=== PATIENT | female | born 1950 | race Caucasian/White ===

== ENCOUNTER 2022-02-02 05:06 | Observation (INO) ==
--- NOTE | 2022-01-04 15:36 | PAT Medication Instructions ---
Medication Instructions Date of Service January 04, 2022 Home Medications cinnamon bark 500 mg capsule (Cinnamon) 500 mg PO losartan 100 mg tablet 100 mg PO QAM cranberry 1,000 mg capsule 1,000 mg PO QAM multivitamin 1 tab PO QAM STOP taking 2 weeks before surgery cranberry 1,000 mg capsule 1,000 mg PO QAM cinnamon bark 500 mg capsule (Cinnamon) 500 mg PO DO NOT take the morning of surgery losartan 100 mg tablet 100 mg PO QAM multivitamin 1 tab PO QAM Insulin Dependent Diabetic Patients NOTHING TO EAT OR DRINK AFTER MIDNIGHT. Other Notes If you have any questions please call us at [phone] or [phone] or [phone] or [phone]
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
[2022-02-02] MEDS ORDERED: TRANEXAMIC ACID 1,000 MG **IV Pre-op IV SCH (06:00)
[2022-02-02] MEDS ORDERED: ACETAMINOPHEN 500 MG TAB PO SCH (06:00)
[2022-02-02] MEDS ORDERED: ceFAZolin 2000MG 2,000 MG/15 ML SYR IV SCH (06:00)
[2022-02-02] MEDS ORDERED: dexAMETHasone 4 MG TAB PO SCH (06:00)
[2022-02-02] MEDS ORDERED: GABAPENTIN 300 MG CAP PO SCH (06:00)
[2022-02-02] MEDS ORDERED: LR 60ML/HR IV SCH (06:00)
[2022-02-02] MEDS ORDERED: TRANEXAMIC ACID 1,000 MG **IV Intra-op IV SCH (06:00)
[2022-02-02] MEDS ORDERED: Ketorolac (*for OR use only*) 30 MG, dexAMETHasone 4 MG, KETAMINE HCL (**OR use only) 1... INFIL SCH (06:00)
[2022-02-02] MEDS ORDERED: LR 500ML BOLUS, THEN 15ML/HR IV SCH (06:00)
[2022-02-02] MEDS ORDERED: ROPIVACAINE 0.5% 5 MG/ML 30 ML VIAL ONE (06:16)
[2022-02-02] MEDS ORDERED: BUPIVACAINE 0.5 % 5 MG/1 ML PF 10ML VIAL ONE (06:16)
[2022-02-02] MEDS ORDERED: MIDAZOLAM HCL 1 MG/ML 2ML VIAL ONE (06:27)
[2022-02-02] MEDS ORDERED: fentaNYL citrate 100 MCG/2 ML VIAL ONE ×2 (06:27→07:17)
[2022-02-02] MEDS ORDERED: PROPOFOL IV EMULSION 10 MG/ML 20 ML VIAL IV ONE (06:27)
[2022-02-02] MEDS ORDERED: LIDOCAINE 2% MPF LOCAL 5 ML VIAL INFIL ONE (06:27)
[2022-02-02] MEDS ORDERED: ORTHO JOINT ANESTHETIC ONE (06:42)
--- NOTE | 2022-02-02 06:43 | History & Physical Bridge Note ---
Date of Service February 02, 2022 History & Physical Bridge Note I have examined the patient, reviewed the History & Physical and in the interval since the performance of the History & Physical I have noted the following changes of clinical significance: no changes noted
[2022-02-02] MEDS ORDERED: fentaNYL citrate 100 MCG/2 ML VIAL IV PRN (07:12)
[2022-02-02] MEDS ORDERED: ATROPINE SULFATE 0.1 MG/ML 10ML SYR IV PRN (07:12)
[2022-02-02] MEDS ORDERED: ePHEDrine sulfate 50 MG/ML AMP IV PRN (07:12)
[2022-02-02] MEDS ORDERED: HYDROmorphone INJ 2 MG/ML SYR/VIAL IV PRN (07:12)
[2022-02-02] MEDS ORDERED: ONDANSETRON INJ 2 MG/ML 2 ML VIAL IV PRN ×2 (07:12→09:52)
[2022-02-02] MEDS ORDERED: DEXAMETHASONE SOD INJ 4 MG/ML VIAL ONE (07:16)
[2022-02-02] MEDS ORDERED: ePHEDrine sulfate 50 MG/ML AMP ONE (07:16)
[2022-02-02] MEDS ORDERED: ONDANSETRON INJ 2 MG/ML 2 ML VIAL ONE (07:16)
--- NOTE | 2022-02-02 08:04 | Operative Report ---
PG Post Operative Report Pre & Post Diagnosis Operation Date: 02/02/22 07:00 Pre-Op Diagnosis: Degenerative Joint Disease Right Knee Post-Op Diagnosis: Degenerative Joint Disease Right Knee I identified the patient and participated in the time-out.: Yes Procedure Operation Date: 02/02/22 07:00 Actual Procedures p Right Total Knee Arthroplasty(Right) - Steven Vazquez DO Surgeon Steven Vazquez DO [employer] Bever[employer] Operations Manager Steven Osman PA-C Estimated Blood Loss 30 Findings Consistent with Post-Op Diagnosis Specimens Right femoral and tibial bone Description of Procedure Implants used: I used a Jayden Persona total knee arthroplasty system with a size 5 PS femur, D tibia, 31 oval patella, and a size 12 CPS polyethylene bearing. All components were cemented in place with Biomet cement. Marlys arrived [facility] for the above procedure. She was seen in the preoperative holding area and the operative extremity was identified and signed. She was given a preoperative antibiotic, TXA, a spinal anesthetic and an adductor nerve block. She was taken back to the operating room and laid on the table in supine position. She was given basic sedation. The operative knee was then prepped and draped in sterile fashion. A timeout was done, and the patient and the operative extremity was properly identified. A midline incision was made directly over the patella. Dissection was taken down to the extensor mechanism. A subvastus arthrotomy was used. The medial retinaculum was released and the fat pad was mostly excised. The knee was flexed and the ACL, PCL, and meniscus were removed. A drill was sent down the center of the femoral canal followed by an intramedullary tucker. Off that tucker a distal femoral cutting block was placed. 9 mm was resected off the distal femur at 5 of valgus. A posterior referencing AP sizing guide was then placed on the distal femur. The femur measured to be a size 5. 2 drill holes were placed in 3 of external rotation. A 4-in-1 cutting block was then impacted into place. Anterior, posterior, and chamfer cuts were then made. The proximal tibia was then exposed. An external tibial alignment guide was placed. A tibial cut guide was then anchored in place and the proximal tibia was then resected. The posterior aspect of the knee was then opened up and any additional meniscus fragments and osteophytes were removed. The tibia measured to be a size D. The tibial plate was then placed in the appropriate rotation and the tibia was drilled and punched. Trial components were then placed. I used a size 12 CPS polyethylene insert. The knee was brought through a full range of motion and felt to be stable. The peg holes for the femoral component were then drilled. The patella was then everted and 9 mm was resected off the posterior aspect of the patella. The patella measured to be a size 31 oval. 3 peg holes were then drilled. A trial patella was placed. The knee was once again brought through a full range of motion and felt to be stable. Trial components were then removed. The surrounding soft tissues were injected with 100 cc of an orthopedic pain control cocktail. All components were then cemented into place with Biomet cement. The final polyethylene insert was then snapped into place. Once cement was dry the tourniquet was deflated. Hemostasis was obtained. A dilute betadyne lavage was then done for 3 minutes. The joint was then irrigated with normal saline solution. The subvastus arthrotomy was then closed with #1 Vicryl suture. The skin was closed with 2-0 Vicryl, 3-0V lock suture, and carolin. A soft compressive dressing was placed. She was then transferred to a hospital bed and taken to the postanesthesia care unit in stable condition. She tolerated the procedure well. Steven Osman PA-C, was present for the entire procedure. He was critical for patient positioning, prepping, draping, retraction exposure, wound closure and application of sterile dressing. I attest to the content of the Intraoperative Record and any orders documented therein. Any exceptions are noted below.
--- NOTE | 2022-02-02 09:18 | XRay Report ---
XR knee RT 1 or 2V routine CLINICAL HISTORY: Postoperative evaluation. COMPARISON: Knee radiograph December 15, 2021. FINDINGS: Alignment of the total right knee arthroplasty is anatomic. There is no periprosthetic fra cture or unexpected radiopaque foreign body. There are skin carolin. IMPRESSION: Expected findings following total right knee arthroplasty. ACT 112: Negative or not required by law. Electronically signed by: Arya Smith M.D. 02/02/2022 9:17 AM
--- NOTE | 2022-02-02 09:25 | Anesthesiology Progress Note ---
Date of Service February 02, 2022 Anesthesia Post Procedure Vital Signs Vital Signs: Temp Pulse Pulse Resp BP Pulse Ox O2 Del Method 02/02/22 09:00 86 17 136/72 98 Nasal Cannula 02/02/22 08:50 80 14 139/73 96 Nasal Cannula 02/02/22 09:20 64 15 136/65 94 Nasal Cannula 02/02/22 09:10 36.1 C L 74 18 142/73 H 98 Nasal Cannula 02/02/22 08:40 83 15 135/75 97 Oxymask 02/02/22 08:31 36.6 C 95 H 17 133/73 99 Oxymask 02/02/22 05:39 36.5 C 60 20 194/84 H 96 Room Air O2 Flow Rate 02/02/22 09:00 4 02/02/22 08:50 4 02/02/22 09:20 2 02/02/22 09:10 4 02/02/22 08:40 5 02/02/22 08:31 7 02/02/22 05:39 Pain Intensity Right Knee: Pain Intensity: 5 Transfer of Care Handoff Completed per policy Notes Mental Status: alert / awake / arousable and participated in evaluation Patient Amnestic to Procedure: Yes Nausea / Vomiting: adequately controlled Pain: adequately controlled Airway Patency, RR, SpO2: stable & adequate BP & HR: stable & adequate Hydration State: stable & adequate Anesthetic Complications: no major complications apparent and Pt Satisfied with anesthetic care
[2022-02-02] MEDS ORDERED: HYDROmorphone INJ 0.5 MG/0.5 ML SYR IV PRN (09:52)
[2022-02-02] MEDS ORDERED: METOCLOPRAMIDE HCL INJ 5 MG/ML 2 ML VIAL IV PRN (09:52)
[2022-02-02] MEDS ORDERED: bisacodyL 10 MG SUPP PR PRN (09:52)
[2022-02-02] MEDS ORDERED: NALOXONE HCL 0.4 MG/1 ML VIAL/CARP IV PRN (09:52)
[2022-02-02] MEDS ORDERED: oxyCODONE HCL IR 5 MG TAB (IMMEDIATE RELEASE) PO PRN (09:52)
[2022-02-02] MEDS ORDERED: MAGNESIUM HYDROXIDE SUSP 30 ML UDC PO PRN (09:52)
[2022-02-02] MEDS: LOSARTAN POTASSIUM 50 MG TAB PO SCH (10:58)
[2022-02-02] MEDS: DOCUSATE SODIUM 100 MG CAP PO SCH ×2 (10:58→21:23)
[2022-02-02] MEDS: ASPIRIN 81 MG ECTAB PO SCH ×2 (10:58→21:23)
[2022-02-02] MEDS: SODIUM CHLORIDE 0.9% 1000ML 1,000 ML IV SCH (10:58)
[2022-02-02] MEDS: MULTIVITAMIN TAB PO SCH (10:58)
[2022-02-02] MEDS ORDERED: COUGH DROP (SUGAR FREE) LOZ 24 LOZ/1 BOX BUCCAL ONE (11:26)
[2022-02-02] MEDS: KETOROLAC TROMETHAMINE 15 MG/ML VIAL IV SCH ×3 (11:29→23:24)
[2022-02-02] MEDS: ACETAMINOPHEN 500 MG TAB PO SCH ×2 (13:38→21:23)
[2022-02-02] MEDS: ceFAZolin 2000MG 2,000 MG/15 ML SYR IV SCH ×2 (15:02→23:23)
[2022-02-02] MEDS ORDERED: SENNA 8.6 MG TAB PO SCH (21:00)
[2022-02-03] MEDS: ACETAMINOPHEN 500 MG TAB PO SCH ×2 (06:08→13:25)
[2022-02-03] MEDS: KETOROLAC TROMETHAMINE 15 MG/ML VIAL IV SCH ×2 (06:09→13:25)
--- NOTE | 2022-02-03 07:13 | Orthopedic Progress Note ---
Date of Service February 03, 2022 Assessment & Plan (1) Status post right knee replacement: Overall she is doing very well. She denies any pain in the right knee. She has been up and ambulating to the bathroom. She will be seen by physical therapy today for ambulation and range of motion exercises. She is on aspirin for DVT prophylaxis. She can be discharged home later today. She will follow with orthopedics in 2 weeks. Brenton Frankel was seen and examined at bedside this morning. Overall she is doing very well. She is not having any pain in the right knee. She has been up and going to the bathroom. She has no complaints.. Review of Systems All systems reviewed & are unremarkable except as noted in HPI & below. Physical Exam On physical examination of the right knee, the dressing is clean and dry. Her leg is out in full extension. She has active dorsiflexion plantarflexion of the right ankle.. Results & Data Results & Data Laboratory Results . Diagnostic Findings Postoperative x-rays of the right knee show the prosthesis to be in anatomic alignment without any evidence of fracture, screws, or loosening. PG Care Time/CCT Total # of Minutes Spent Total Time Spent with Patient: Total time spent is greater than 50% in coordination of care (as documented) at patient's floor/unit and/or counseling patient: Coding Level of Care Code 30401 Post Operative Follow-Up Diagnoses Status post right knee replacement Z96.651
--- NOTE | 2022-02-03 07:14 | Discharge Summary ---
Date of Service February 03, 2022 Admission HPI (Per Admitting) Marlys is a pleasant 71-year-old female who has been dealing with chronic worsening right knee and leg pain. She has an obvious valgus deformity of her right leg, which causes her to limp. Her leg is out on her at times and she has recently fallen. She does have a history of left knee replacement done by Dr. Vera in 2007. She has done fairly well with that. Unfortunately, she is really struggling with her right knee. After failing conservative treatment, she has elected proceed with a right knee replacement. Admission Exam (Per Admitting) On physical examination of the right knee, she has a slight valgus deformity. She has range of motion of 0 to 120 degrees. She has no instability. She has pain over the distal lateral femoral condyle and over the lateral joint line.. Principal Diagnosis Same as "Discharge Diagnosis" noted below under Discharge Instructions. Discharge Exam On physical examination of the right knee, the dressing is clean and dry. Her leg is out in full extension. She has active dorsiflexion plantarflexion of the right ankle.. Discharge Data Procedures Performed Operation Date: 02/02/22 07:00 Actual Procedures p Right Total Knee Arthroplasty(Right) - Steven Vazquez DO Ordered Studies 02/02/22 05:00 US - OR guided needle placemen Routine Hospital Course (1) Status post right knee replacement: On February 02, 2022 Marlys arrived at [facility] and underwent a right knee replacement without complication. Postoperatively she was started on aspirin for DVT prophylaxis and transferred to the general orthopedic floors. Her hospital course was uneventful. On postop day #1, her vital signs were stable and her pain was well controlled. She was able to participate well with physical therapy doing ambulation and range of motion exercises. She was then discharged home. She will follow-up with orthopedics in 2 weeks. PG Care Time/CCT Total # of Minutes Spent Total Time Spent with Patient: Total time spent is greater than 50% in coordination of care (as documented) at patient's floor/unit and/or counseling patient: Discharge Plan Discharge Items Patient Disposition: Home - Home Health Services Reason For Visit: Degenerative Joint Disease Right Knee Discharge Diagnosis: Right knee replacement Activity: Per Instructions section Non-emergency contact: Surgeon Call non-emergency contact if: your wound has increased redness and your wound has increased drainage Follow-up/Referrals: Jesse Lopez MD [Primary Care Provider] - Diet: Regular Addtl Attending Provider Instructions: Activity and Therapy Recommendations: * If you are using [facility] then therapy will be provided at your home until they feel you have accomplished all of your goals. * If you are using [facility] then Physical Therapy will be provided until they feel you are ready to start Outpatient Physical Therapy. * If you are not using home therapy then Outpatient Physical Therapy should start about 3-5 days from your day of surgery. Therapy will last about 6-10 weeks * It is important not to put a pillow under your knee when you are relaxing or sleeping. It is just as important to make sure you are getting your knee perfectly straight as it is to regain your knee bend. * You were shown a series of exercises in the hospital. Do these exercises three times each day including the exercises you were shown in physical therapy. * Get up and walk several times each day. For the first four weeks, try not to stand or walk for more than one hour at a time. If you do stand or walk for more than one hour, you will not hurt anything, but your leg will likely swell. * As you feel comfortable, you may change from the walker or crutches to a cane and then to independent walking. Medications: * Narcotic You will likely be sent home from the hospital with a prescription for the narcotic pain medication that worked best throughout your stay. * Aspirin Most patients will be required to take Aspirin 81mg twice a day for 6 weeks after surgery. This is obtained [id number] and a prescription is not necessary. * Other medications may be prescribed for specific circumstances. If you have any questions, please call the office at . * Resume previous home medications unless otherwise instructed TEDs/Elastic Stockings: The white elastic stockings help limit swelling and prevent blood clots from forming in your legs.~ The more you wear them, the more they work. Wear them for six weeks. Dressing Care: The dressing can be changed after physical therapy on postop day #1. Daily dry dressing changes for a few days, especially if the incision is still draining some. If the incision is not draining then you may leave the carolin open to air. If there is a little bit of drainage or if the carolin are getting stuck on your clothing then cover the incision with a dry dressing. The carolin will be removed at your 2 week follow-up appointment. Showering: You may shower 5 days from the day of surgery as long as the incision is no longer draining. You may shower with the carolin exposed. Let soapy water run over the carolin and pat them dry. Do not scrub or soak the incision. Things To Watch For: * Drainage from the incision site that occurs more than one week after your surgery. * Increased redness at the incision site. * Fever above 102 degrees Fahrenheit. * Unusual chest pain or shortness of breath. * Call [facility] at with any of the above problems Follow-Up Visit: Follow-up with Dr. Vazquez's PA (Steven Osman) 2-3 weeks after your day of surgery. He will remove your carolin and answer any questions. If you have any additional questions or concerns, Dr Vazquez is usually in the office at the same time and will be available An appointment was probably scheduled when you signed-up for surgery in the office. If you have any questions call Office Instructions: More detailed instructions as well as Frequently Asked Questions were provided in a folder by our office when you signed-up for surgery. Please review these instructions when you get home. If you have any further questions or concerns, please feel free to call the office at [phone] Pending Studies at Discharge: No Stand-Alone Forms: [facility] Medications and DC Order Prescriptions: New oxycodone-acetaminophen 5-325 mg tablet 1 tab PO Q6H PRN (Reason: pain) Qty: 30 0RF aspirin 81 mg Tablet,Delayed Release (Dr/Ec) 81 mg PO BID 42 Days Qty: 0 0RF Continued losartan 100 mg tablet 100 mg PO QAM cinnamon bark [Cinnamon] 500 mg Capsule 500 mg PO 1200 multivitamin Tablet 1 tab PO QAM cranberry 1,000 mg Capsule 1,000 mg PO QAM Discharge Orders: Discharge Order (Routine); Ordered 02/03/22 Ordered By: Steven Vazquez Admission Data Admit Date/Time: 02/02/22 08:32 Attending Provider: Steven Vazquez Admit Provider: Steven Vazquez Primary Care Provider: Jesse Lopez
[2022-02-03] MEDS ORDERED: dexAMETHasone 4 MG TAB PO SCH (08:00)
[2022-02-03] MEDS: MULTIVITAMIN TAB PO SCH (08:07)
[2022-02-03] MEDS: ASPIRIN 81 MG ECTAB PO SCH (08:07)
[2022-02-03] MEDS: DOCUSATE SODIUM 100 MG CAP PO SCH (08:07)
[2022-02-03] MEDS: LOSARTAN POTASSIUM 50 MG TAB PO SCH (08:07)
[2022-02-03] MEDS: SODIUM CHLORIDE 0.9% 1000ML 1,000 ML IV SCH (08:59)
== END 2022-02-03 14:29 | disposition home health service (06) ==
LOC: ASU 05:06 → 3E 05:06